=== PATIENT | male | born 2000 | race Caucasian/White ===

== ENCOUNTER 2022-04-01 06:34 | Observation (INO) | payer OTHER, SELFPAY ==
[2022-04-01] VITALS (18 sets, daily range): BP systolic 100–163; BP diastolic 56–101; PULSE 57–84; RESP 12–26; TEMP 36.3–36.8; O2SAT 95–100; BMI 17.1
--- NOTE | 2022-04-01 | ECHO_ITS ---
Patient Info Name: Alec Perez Age: 21 years : 2000 Gender: Male Ht: 68 in Wt: 112 lbs BSA: 1.55 m2 HR: 63 bpm BP: 112 / 69 mmHg Heart Rhythm: Sinus Rhythm Technical Quality: Fair Exam Date: 04/01/2022 11:12 AM Exam Location: [facility] Patient Status: Outpatient Admit Date: 04/01/2022 Staff Ordering Physician: Kina Mcgowan Flakeboard Line Tender: Aby Swenson RDCS Attending Provider: Alberto Whitman MD Referring Physician: Roslyn ROMERO; Exam Type: CA echo doppler color flow Study Info Indications - chest pain Complete two-dimensional, color flow and Doppler transthoracic echocardiogram is performed. Summary 1. Complete two-dimensional, color flow and Doppler transthoracic echocardiogram is performed. 2. Unremarkable echocardiogram. 3. No regional wall motion abnormalities. 4. No pericardial fluid. Left Ventricle Left ventricular chamber dimension is normal. Left ventricular systolic function is normal, estimated at 50-55%. The left ventricular diastolic function is normal. Right Ventricle Right ventricular chamber dimension is normal. Left Atria Left atrial chamber dimension is normal. Right Atria Right atrial chamber dimension is normal. Aortic Valve The aortic valve is normal. Pulmonic Valve The pulmonic valve is normal. Mitral Valve The mitral valve has normal leaflets. Tricuspid Valve The tricuspid valve leaflets are normal. Pericardium/Pleural The pericardium appears normal. There is no pericardial effusion. Aorta The aortic root size at the sinus of Valsalva is normal. Left Ventricular Outflow Tract Name Value Normal LVOT 2D LVOT Diameter 2.1 cm LVOT Doppler LVOT Peak Gradient 2 mmHg LVOT Mean Gradient 1 mmHg LVOT VTI 15 cm LVOT VTI/AV VTI Ratio 0.7 LVOT Stroke Volume 53 ml LVOT CO 3.4 l/min LVOT CI 2.2 l/min/m2 Pulmonic Valve Name Value Normal RVOT Doppler RVOT Peak Gradient 2 mmHg PV Doppler PV Peak Gradient 3 mmHg Mitral Valve Name Value Normal MV Doppler MV Decel Ralls 347 cm/s2 MV PHT 63 ms MV Area (PHT) 3.5 cm2 4.0-5.0 MV Diastolic Function
--- NOTE | ~2022-04-01 | XR_ITS ---
EXAMINATION: XR chest 2V DATE: 04/01/2022 07:11 INDICATION: Left-sided chest pain TECHNIQUE: PA and lateral views of the chest were obtained. COMPARISON: None FINDINGS: The lungs are clear with no focal airspace opacities, pulmonary edema, pleural effusion or pneumothor ax. The cardiomediastinal silhouette is normal. Visualized bones and soft tissues are unremarkable. IMPRESSION: 1. Normal chest radiograph. Reviewed, dictated and finalized at location A. IMPRESSION: 1. Normal chest radiograph.
--- NOTE | 2022-04-01 06:39 | ECG_ITS ---
Measurements Intervals [place] Rate: 68 P: 39 NH: 118 QRS: 75 QRSD: 105 T: 45 QT: 399 QTc: 425 Interpretive Statements SINUS RHYTHM WITH SHORT NH INTERVAL INCOMPLETE RIGHT BUNDLE BRANCH BLOCK ST ELEVATION IN DIFFUSE LEADS, PROBABLY EARLY REPOLARIZATION BASELINE ARTIFACT- I, II, III, AVR, AVL, AVF, V1-V2 BORDERLINE ECG Electronically Signed On 04-01-2022 16:42:02 CDT by Mansoor Cast D.O.
[2022-04-01 06:57] LABS: Basophils Percent Auto 0.6 % (0.2-1.2); Eosinophils Absolute Auto 0.1 K/mm3 (0-0.3); Eosinophils Percent Auto 1.2 % (0-4.4); Hematocrit 47.5 % (42.0-52.0); Immature Granulocyte Absolute 0.02 K/mm3 (0.00-0.031); Immature Granulocyte Percent A 0.3 % (0-0.5); Lymphocytes Absolute Auto 1.55 K/mm3 (0.9-3.2); Lymphocytes Percent Auto 22.6 % (18.3-44.2); Mean Corpuscular HGB Conc 33.7 g/dl (32-36); Mean Corpuscular Hemoglobin 33.9 pg (26-34); Mean Corpuscular Volume 100.6 fl (80-100); Mean Platelet Volume 9.9 fl (7.4-10.4); Monocytes Absolute Auto 1.3 K/mm3 (0.1-0.6); Monocytes Percent Auto 19.5 % (2.6-8.5); Neutrophils Absolute Auto 3.8 K/mm3 (1.3-6.7); Neutrophils Percent Auto 55.8 % (45.5-73.1); Platelet Count Result 174 k/mm3 (150-375); Red Blood Count 4.72 M/mm3 (4.6-6.20); Red Cell Distribution Width 12.9 % (11.5-14.5); White Blood Count 6.9 K/mm3 (4.5-10.0)
[2022-04-01 07:04] LABS: Alanine Aminotransferase 26 U/L (6-50); Albumin Level 4.9 g/dL (3.5-5.1); Alkaline Phosphatase 54 U/L (38-126); Anion Gap 8 mmol/L (8-16); Aspartate Amino Transferase 43 U/L (17-59); Bilirubin,Total 1.1 mg/dL (0.2-1.3); Blood Urea Nitrogen 11 mg/dL (9-20); Calcium 9.7 mg/dL (8.4-10.2); Carbon Dioxide 29 mmol/L (22-30); Chloride 101 mmol/L (98-107); Estimated CRCL calculation 106 ml/min; Estimated Glomerular Filt Rate > 60; Glucose 115 mg/dL (65-110); Lipase 78 U/L (23-300); Potassium 3.9 mmol/L (3.4-5.0); Sodium 138 mmol/L (137-145)
--- NOTE | 2022-04-01 07:17 | PC.NURSE ---
BSSR to CAT RN
[2022-04-01 07:40] LABS: Partial Thromboplastin Time 28.3 SECONDS (22.3-36.8); Prothrombin Time 13.2 Seconds (11.1-14.7)
[2022-04-01] MEDS: ASPIRIN 81 MG CHEWABLE TABLET 324 MG PO (07:45)
[2022-04-01] MEDS: ONDANSETRON INJ 4 MG/2 ML VIAL IV PUSH (07:46)
[2022-04-01] MEDS: MORPHINE SULFATE (*CRX) 4 MG/ML INJ IV PUSH (07:46)
[2022-04-01 08:11] LABS: Amphetamine Screen Urine Negative (Negative); Barbiturate Screen Urine Negative (Negative); Benzodiazepines Screen Urine Negative (Negative); Cannabinoid Screen Urine Positive (Negative); Cocaine Screen Urine Negative (Negative); Methadone Screen Urine Negative (Negative); Opiate Screen Urine Negative (Negative); Phencyclidine Screen Urine Negative (Negative)
--- NOTE | 2022-04-01 08:24 | ED.CHESTPAIN ---
HPI - Chest Pain General Chief Complaint: Chest Pain Stated Complaint: chest tightness Time Seen by Provider: 04/01/22 07:03 Source: patient and RN notes reviewed Mode of arrival: ambulatory Limitations: no limitations History of Present Illness HPI narrative: This is a 21 year old male who presents for evaluation of left chest pain. Patient states he woke up with chest pain yesterday morning. He describes his pain has constant left chest tightness. His pain is not worsening with activity or position. He reports having some sob earlier when he woke up this morning, but he denies sob walking into ER. He denies sob now. He denies associated nausea, vomiting, diaphoresis, or preceding URI symptoms. He rates his pain as 6/10. He has not tried any treatment for his pain. Pain is non radiating Related Data Allergies Allergy/AdvReac Type Severity Reaction Status Date / Time No Known Allergies Allergy Verified 04/01/22 06:41 Review of Systems Review of Systems: All systems reviewed & are unremarkable except as noted in HPI and below Constitutional: Constitutional: Denies chills, Denies fatigue and Denies fever(s) ENT: Denies nasal congestion and Denies sore throat Cardiovascular: Cardiovascular: Reports chest pain and Denies rapid heart rate Respiratory: Respiratory: Denies chest congestion, Denies cough, Reports dyspnea and Denies wheezing Gastrointestinal: Gastrointestinal: Denies abdominal pain, Denies bloating, Denies constipation and Denies heartburn Musculoskeletal: Musculoskeletal: Denies back pain PMFSH Past Medical History Medical History (Updated 04/01/22 @ 19:18 by Mariel Bautista MD) Anxiety Family History Family History Grandparent Family history of malignant neoplasm Social History Social History (Updated 04/01/22 @ 08:27 by Mariel Bautista MD) Smoking status: Never smoker Alcohol intake: current Drinks per week: 15 Substance use: current Substance use type: marijuana Spiritual care concerns: No Exam Narrative: GENERAL: Well-appearing, well-nourished, and in no acute distress. HEAD: Normocephalic, atraumatic EYES: PERRLA and EOMI, conjunctiva clear without discharge THROAT:Mucous membranes moist, Oropharynx normal without erythema, exudate, peritonsillar swelling or fluctuance NECK: Supple, without lymphadenopathy or mass RESPIRATORY: No respiratory distress, Airway patent, Respirations non-labored, Clear to auscultation without rales, rhonchi or wheeze; mild left chest wall tenderness HEART: Regular rate and rhythm. No murmur heard. Normal peripheral pulses. ABDOMEN: Soft, nontender, nondistended, normal active bowel sounds. No masses. No rebound or guarding, No organomegaly. EXTREMITIES: No edema, normal strength with full range of motion. SKIN: Warm, dry, normal color without rash NEURO: Alert and oriented x3. CN 2-12 grossly intact. No focal deficits. PSYCH: Normal mood and affect. Course Reevaluation(s) Reevaluation #1: I Discussed with patient that he was found to have elevated troponin. Likely cause is due to myopericarditis. He is no acute distress. I spoke with Dr Chamorro. Agrees with aspirin , morphine, and zofran. No other medication recommendations. I also spoke with Dr. Whitman who accepts patient to service. HE request ECHO to be ordered. Date: 04/01/22 Time: 08:28 Vital Signs Vital signs: Vital Signs Temperature 97.4 F L 04/01/22 06:37 Pulse Rate 70 04/01/22 06:37 Respiratory Rate 12 04/01/22 06:37 Blood Pressure 163/101 H 04/01/22 06:37 Pulse Oximetry 100 04/01/22 06:37 Temperature 97.6 F 04/01/22 16:00 Pulse Rate 75 04/01/22 18:00 Respiratory Rate 12 04/01/22 16:00 Blood Pressure 100/56 L 04/01/22 16:00 Pulse Oximetry 100 04/01/22 16:00 Oxygen Delivery Room Air 04/01/22 16:00 MDM - Chest Pain Differential Diagnosis Differ
[2022-04-01 08:45] LABS: SARS-CoV-2 RNA PCR Negative
--- NOTE | 2022-04-01 09:00 | ADMGEN ---
This patient, Alec Perez, was admitted to IMU Room 203-01. Patient/family oriented to hospital policies and general routines including ID bracelet, bed and alarms, visiting hours, pain management, procedures, bathroom and other care routines, personal items, smoking policy, room service/diet, and visiting hours. Information on how to activate the Rapid Response Team has been discussed. Patient/Family are encouraged to report perceived risks to care and to ask questions if they do not understand what they are told or what they should do.
--- NOTE | 2022-04-01 10:41 | ECG_ITS ---
Measurements Intervals [place] Rate: 63 P: 37 DE: 122 QRS: 77 QRSD: 98 T: 50 QT: 419 QTc: 432 Interpretive Statements SINUS RHYTHM ST ELEVATION IN DIFFUSE LEADS, PROBABLY EARLY REPOLARIZATION BORDERLINE ECG Electronically Signed On 04-01-2022 16:44:03 CDT by Mansoor Cast D.O.
--- NOTE | 2022-04-01 11:31 | PM.CNCAR ---
Assessment and Plan Assessment and plan (1) Myocarditis: Code(s): I51.4 - Myocarditis, unspecified Status: Acute Plan This is a very young 21-year-old man otherwise healthy presenting with chest pain that started yesterday. I believe the clinical diagnosis here is acute myocarditis. He has 2 normal looking electrocardiogram start troponin levels are significantly elevated. I do not detect any significant abnormalities on his physical exam. His echocardiogram does not demonstrate any wall motion abnormalities or pericardial effusions. I am going to treat him with cortical steroids empirically at this time because of his young age and significant troponin elevation. His LV function looks okay so at this point I will not be starting Lul inhibitors or beta-blockers. We will be watched carefully in the hospital. We will continue to get troponins until we see the peak and then treat him sit with supportive care as needed. Thank you for consulting me to see this interesting young gentleman. Given his young age and lack of risk factors the likelihood that this represents a ischemic event with premature coronary disease is vanishingly small and I do not believe he would benefit from a coronary angiogram at this time Mak Silva MD [facility] History of Present Illness History of Present Illness Consult date/time: 04/01/22 11:31 Consult reason: chest pain Reason For Visit: Chest Pain/NSTEMI vs myopericarditis Narrative: This is a 21-year-old man I am seeing at the request of the hospitalist this morning because of chest pain and troponin elevation. The patient does not have any prior history of significant medical problems in began to experience chest pain yesterday morning. He describes a dull aching sensation sometimes pressure-like sensation in the center of the chest in the substernal region. Yesterday off and on the pain was moderate to severe. When the pain was most severe yesterday afternoon and early evening he noticed that with deep inspiration it was significantly worse. He tried to relax at home and tied was taking shallow breaths. He did get some sleep last night but was awakened again at 4:00 a.m. in the morning with ongoing symptoms and at [place] at that time elected to come into the hospital for evaluation. In the emergency department his electrocardiogram looks unremarkable. He had another ECG done a short time ago that also shows only some early repolarization but no other abnormalities. Troponin levels are elevated at admission at over 3 and 2nd sample is over 8. He is currently not having any active chest pain he has in the IMU echocardiogram is being done at my request urgently. This study has yet to be formally read but it in short does not demonstrate any left ventricular systolic dysfunction or significant wall motion abnormalities. He is again otherwise healthy gentleman without any coronary risk factors specifically denies any hypertension diabetes or dyslipidemia. He is a lifelong non cigarette smoker. Occasionally smokes marijuana. There is no family history of premature ischemic heart disease that he or his mother can recall. Review of Systems Constitutional: Constitutional: Reports no additional constitutional complaints Eyes: Eyes: Reports no additional eye complaints ENT: Reports system reviewed and no additional complaints, except as documented Cardiovascular: Cardiovascular: Reports as per HPI Respiratory: Respiratory: Reports no additional respiratory complaints Gastrointestinal: Gastrointestinal: Reports no additional gastrointestinal complaints Musculoskeletal: Musculoskeletal: Reports no additional musculoskeletal complaints Integumentary/Breasts: Skin/Breast: Reports system reviewed and no additional complaints, except as docu Neurologic: Reports system reviewed and no additional complaints, except as documented Psychiatric: Psychiatric: Reports depression Endocrine: Endocrine:
[2022-04-01] MEDS: predniSONE 20 MG TABLET 40 MG PO (12:38)
--- NOTE | 2022-04-01 18:08 | PM.IMHP ---
H&P: HPI History of Present Illness Date/Time: 04/01/22 18:08 Chief Complaint: chest pain Narrative: ED-HPI narrative: This is a 21 year old male who presents for evaluation of left chest pain.? Patient states he woke up with chest pain yesterday morning. ? He describes his pain has constant left chest tightness. His pain is not worsening with activity or position. ? He reports having some sob earlier when he woke up this morning, but he denies sob walking into ER. He denies sob now.? He denies associated nausea, vomiting, diaphoresis, or preceding URI symptoms. He rates his pain as 6/10.? ? He has not tried any treatment for his pain.? PAin is non radiating patient is a 21-year-old male presented emergency depart with complaint of chest and persistent elevated tropes concerning for coronary artery disease however patient has no risk factor he does not history of cocaine or amphetamine, patient had a cardiac echo did not show any structural damage and no wall abnormalities, steam conditioner filling suspect inflammatory carditis possibly viral started the patient on steroid, steam conditioner filling not recommending TOLU-inhibitor or beta-manan as his cardiac echo is essentially normal, will continue to monitor the patient reassess tomorrow and further recommendation to follow. patient is admitted as observation status. Review of Systems Review of Systems: per [facility] Past Medical History Medical History (Updated 04/01/22 @ 18:21 by Alberto Whitman MD) Anxiety Family History Family History Grandparent Family history of malignant neoplasm Social History Social History (Updated 04/01/22 @ 08:27 by Mariel Bautista MD) Smoking status: Never smoker Alcohol intake: current Drinks per week: 15 Substance use: current Substance use type: marijuana Spiritual care concerns: No Meds Home Medications and Allergies Home Medications Medication Instructions Recorded Confirmed Type escitalopram oxalate 10 mg tablet 10 mg PO DAILY #30 tabs 03/07/22 04/01/22 Rx Allergies Allergy/AdvReac Type Severity Reaction Status Date / Time No Known Allergies Allergy Verified 04/01/22 06:41 Vital Signs Vital Signs - 24 hr 04/01/22 06:37 04/01/22 06:42 04/01/22 07:01 Temperature 97.4 F L Pulse Rate 70 60 69 Respiratory Rate 12 18 Blood Pressure 163/101 H 128/87 Pulse Oximetry 100 95 Oxygen Delivery 04/01/22 07:13 04/01/22 07:46 04/01/22 08:01 Temperature Pulse Rate 73 84 83 Respiratory Rate 16 14 26 H Blood Pressure 127/80 114/79 123/79 Pulse Oximetry 100 98 96 Oxygen Delivery 04/01/22 08:31 04/01/22 08:55 04/01/22 10:00 Temperature 97.9 F Pulse Rate 74 73 63 Respiratory Rate 16 16 Blood Pressure 123/79 112/69 Pulse Oximetry 99 100 Oxygen Delivery 04/01/22 09:00 04/01/22 11:58 04/01/22 12:00 Temperature 98.1 F Pulse Rate 61 Respiratory Rate 18 Blood Pressure 104/64 Pulse Oximetry 100 98 98 Oxygen Delivery Room Air Room Air 04/01/22 12:00 04/01/22 14:00 04/01/22 16:00 Temperature 97.6 F Pulse Rate 71 68 65 Respiratory Rate 12 Blood Pressure 100/56 L Pulse Oximetry 100 Oxygen Delivery 04/01/22 16:00 Temperature Pulse Rate 65 Respiratory Rate 12 Blood Pressure Pulse Oximetry 100 Oxygen Delivery Room Air Exam Narrative: under nourished BMI 17 Patient is comfortable, NAD HEENT: eyes are clear and none icteric LUNGS:CTA HEART: RR S1S2 ABD: BS+, Soft and nontender Lower extremities: no edema SKIN: nonjaundiced Neuro: grossly intact. H&P: Results Labs Labs: Short CBC 04/01/22 Range/Units 06:44 WBC 6.9 (4.5-10.0) K/mm3 Hgb 16.0 (14.0-18.0) g/dL Hct 47.5 (42.0-52.0) % Plt Count 174 (150-375) k/mm3 BMP 04/01/22 06:44 Sodium 138 Potassium 3.9 Chloride 101 Carbon Dioxide 29 BUN 11 Creatinine 0.80 Glucose 115 H C
[2022-04-02] VITALS (9 sets, daily range): BP systolic 110–114; BP diastolic 60–69; PULSE 52–75; RESP 16; TEMP 36.5–36.7; O2SAT 98–100
[2022-04-02 04:39] LABS: Basophils Percent Auto 0.7 % (0.2-1.2); Eosinophils Percent Auto 0.3 % (0-4.4); Hemoglobin 15.7 g/dL (14.0-18.0); Immature Granulocyte Absolute 0.01 K/mm3 (0.00-0.031); Immature Granulocyte Percent A 0.2 % (0-0.5); Lymphocytes Absolute Auto 1.59 K/mm3 (0.9-3.2); Mean Corpuscular HGB Conc 34.9 g/dl (32-36); Mean Corpuscular Hemoglobin 34.1 pg (26-34); Mean Corpuscular Volume 97.8 fl (80-100); Mean Platelet Volume 9.4 fl (7.4-10.4); Monocytes Absolute Auto 0.9 K/mm3 (0.1-0.6); Monocytes Percent Auto 15.1 % (2.6-8.5); Neutrophils Absolute Auto 3.3 K/mm3 (1.3-6.7); Neutrophils Percent Auto 56.7 % (45.5-73.1); Platelet Count Result 177 k/mm3 (150-375); Red Cell Distribution Width 12.6 % (11.5-14.5); White Blood Count 5.9 K/mm3 (4.5-10.0)
[2022-04-02 04:55] LABS: Alanine Aminotransferase 27 U/L (6-50); Albumin Level 4.5 g/dL (3.5-5.1); Alkaline Phosphatase 51 U/L (38-126); Anion Gap 3 mmol/L (8-16); Aspartate Amino Transferase 42 U/L (17-59); Bilirubin,Total 0.8 mg/dL (0.2-1.3); Blood Urea Nitrogen 14 mg/dL (9-20); Calcium 9.3 mg/dL (8.4-10.2); Carbon Dioxide 30 mmol/L (22-30); Chloride 105 mmol/L (98-107); Estimated CRCL calculation 122 ml/min; Estimated Glomerular Filt Rate > 60; Glucose 112 mg/dL (65-110); Potassium 4.2 mmol/L (3.4-5.0); Sodium 138 mmol/L (137-145)
[2022-04-02 05:15] LABS: Atypical Lymphocytes Present; Platelet Estimate Adequate (Adequate)
[2022-04-02] MEDS: ASPIRIN 81 MG CHEWABLE TABLET PO (08:10)
[2022-04-02] MEDS: predniSONE 20 MG TABLET PO (08:10)
--- NOTE | 2022-04-02 13:47 | PM.PNCARD ---
Progress Note: A&P Assessment and Plan (1) Myocarditis: Code(s): I51.4 - Myocarditis, unspecified Status: Acute Assessment and Plan: Etiology unknown. Most likely viral, however, history is not suggestive precise etiology. Discussed at length with the patient and his parents with regards to there is considerations including viral, bacterial, environmental/illicit drugs, fungal, and or autoimmune. Patient provides no history or symptoms suggestive of systemic inflammatory process, recent illnesses or recent drug use. However, marijuana drug screen was positive. He has been advised to avoid alcohol, any illicit substance abuse. Avoid overly strenuous or sexual activity for the next 2 weeks. We discussed the use of prednisone and is patient is feeling much better after initiation will taper down over the next 7-10 days to follow up with Dr. Silva as an outpatient. Thankfully patient has not demonstrated concerning arrhythmias, his normal LV function without wall motion abnormalities and normal pericardium. EKGs are also unremarkable patient is completely asymptomatic at this time. Troponin has begun to trend down very nicely. We discussed potential dangers involved with myocarditis particular if symptoms were to worsen with more extensive damage, LV dysfunction and or ventricular arrhythmias. We discussed the range of options including complete recovery without residual issue and or fulminant myocarditis progressing to the point of cardiac transplant. Patient is doing very well at this time clinically but has been encouraged to monitor symptoms closely and if any recurrence of symptoms to notify the office immediately. They verbalized understanding and agreed with plan of care. Discussed at length and all questions answered to their satisfaction. We discussed the limitations of potential benefits of additional workup which may be confounded given the initiation of steroids. Patient is not arrive symptoms or dizzy of a family history of autoimmune disease so evaluation for lupus, Jose's or other such conditions anticipated be very low yield. Patient stable for discharge home later today. 1. Plan to taper prednisone 20 mg for 2 more days, 10 mg for 3 days, 5 mg for 3 days and then discontinuation. 2. Follow-up with Dr. Silva in 2 weeks as an outpatient. 3. Remain off work for 2 weeks until seen. 4. Disposition per Hospitalist Service. (2) Elevated troponin: Code(s): R77.8 - Other specified abnormalities of plasma proteins Status: Acute Assessment and Plan: Troponin elevated response to myocardial inflammatory process peaking greater than 8 now less than for recovering nicely. As above. Follow-up with Dr. Silva within 2 weeks as an outpatient. He is to remain off work and avoid significant physiologic stress until advised. Subjective Date/time seen: Date of service: 04/02/22 13:47 Follow-up for chest pain, myocarditis with elevated troponin Patient feels very well. Denies chest pain, shortness of breath, palpitations, dizziness, near-syncope or syncope. Patient given steroids yesterday. No issues overnight. Mother and father at bedside. Very lengthy discussion held with the patient and his parents with regards to myocarditis causes, prognosis and treatment options. Review of Systems Review of Systems: As above in his resident illness. All systems reviewed & are unremarkable except as noted in HPI and below Constitutional: Constitutional: Reports as per HPI and Reports no additional constitutional complaints Eyes: Eyes: Reports as per HPI and Reports no additional eye complaints ENT: Reports system reviewed and no additional complaints, except as documented and Reports as per HPI Cardiovascular: Cardiovascular: Reports as per HPI and Reports no additional cardiovascular complaints Respiratory: Respiratory: Reports as per HPI and Reports no additional respiratory complaints G
--- NOTE | 2022-04-02 14:17 | PM.DS ---
DS: Admitting Diagnosis Discharge Date 04/02/2022 Admitting Diagnosis chest Pain DS: Discharge Diagnosis Discharge Diagnosis (1) Chest pain in adult: Code(s): R07.9 - Chest pain, unspecified Status: Acute Assessment and Plan: ED-[facility] narrative: This is a 21 year old male who presents for evaluation of left chest pain.? Patient states he woke up with chest pain yesterday morning. ? He describes his pain has constant left chest tightness. His pain is not worsening with activity or position. ? He reports having some sob earlier when he woke up this morning, but he denies sob walking into ER. He denies sob now.? He denies associated nausea, vomiting, diaphoresis, or preceding URI symptoms. He rates his pain as 6/10.? ? He has not tried any treatment for his pain.? PAin is non radiating patient is a 21-year-old male presented emergency depart with complaint of chest and persistent elevated tropes concerning for coronary artery disease however patient has no risk factor he does not history of cocaine or amphetamine, patient had a cardiac echo did not show any structural damage and no wall abnormalities, signal inspector suspect inflammatory carditis possibly viral started the patient on steroid, signal inspector not recommending TOLU-inhibitor or beta-manan as his cardiac echo is essentially normal, will continue to monitor the patient reassess tomorrow and further recommendation to follow. DS: Summary Hospital Course Reason for hospitalization: This is a 21 year old male who presents for evaluation of left chest pain.? Patient states he woke up with chest pain yesterday morning. ? He describes his pain has constant left chest tightness. His pain is not worsening with activity or position. ? He reports having some sob earlier when he woke up this morning, but he denies sob walking into ER. He denies sob now.? He denies associated nausea, vomiting, diaphoresis, or preceding URI symptoms. He rates his pain as 6/10.? ? He has not tried any treatment for his pain.? PAin is non radiating ?patient is a 21-year-old male presented emergency depart with complaint of chest and persistent elevated tropes concerning for coronary artery disease however patient has no risk factor he does not history of cocaine or amphetamine,? patient had a cardiac echo did not show any structural damage and no wall abnormalities, signal inspector suspect inflammatory carditis possibly viral started the patient on steroid,? signal inspector not recommending TOLU-inhibitor or beta-manan as his cardiac echo is essentially normal, will continue to monitor the patient reassess tomorrow and further recommendation to follow. ?patient is admitted as observation status. Hospital Course: This is a 21 year old male who presents for evaluation of left chest pain.? Patient states he woke up with chest pain yesterday morning. ? He describes his pain has constant left chest tightness. His pain is not worsening with activity or position. ? He reports having some sob earlier when he woke up this morning, but he denies sob walking into ER. He denies sob now.? He denies associated nausea, vomiting, diaphoresis, or preceding URI symptoms. He rates his pain as 6/10.? ? He has not tried any treatment for his pain.? PAin is non radiating ?patient is a 21-year-old male presented emergency depart with complaint of chest and persistent elevated tropes concerning for coronary artery disease however patient has no risk factor he does not history of cocaine or amphetamine,? patient had a cardiac echo did not show any structural damage and no wall abnormalities, signal inspector suspect inflammatory carditis possibly viral started the patient on steroid,? signal inspector not recommending TOLU-inhibitor or beta-manan as his cardiac echo is essentially normal, will continue to monitor the patient reassess tomorrow and further recommendation to follow. patient is seen by his signal inspector, remains cl
== END 2022-04-02 14:40 | disposition home or self-care (01) ==
LOC: ANHED 07:07 → ANHIMU 08:31
PROVIDERS: Emergency Medicine; Specialist; Admitting Provider Family Medicine; Emergency Provider General Practice; PCP Physician Assistant; Visit Provider Family Medicine
DX: I51.4 Myocarditis, unspecified (principal); F41.9 Anxiety disorder, unspecified; Z72.89 Other problems related to lifestyle; F12.90 Cannabis use, unspecified, uncomplicated; R77.8 Other specified abnormalities of plasma proteins; I45.10 Unspecified right bundle-branch block; R94.31 Abnormal electrocardiogram [ECG] [EKG]; Z20.822 Contact with and (suspected) exposure to COVID-19; Z79.899 Other long term (current) drug therapy
CPT/HCPCS: 36415; 71046; 80053; 80307; 83690; 84484; 85025; 85610; 85730; 93005; 93306; 96374; 96375; 99285; A9270; C9803; G0378; J2270; J2405; J7512; U0003; U0005